=== PATIENT | male | born 1965 | race Caucasian/White ===

== ENCOUNTER 2020-04-27 19:31 | Emergency (ER) | payer OTHER ==
[~2020-04-27] VITALS: Ht 165.1 cm; Wt 65.3 kg
[2020-04-27 21:03] LABS: BASOPHILS 0.9 % (0.0-2.0); EOSINOPHILS 2.4 % (0.0-3.0); HEMATOCRIT 32.6 % (42.0-52.0); HEMOGLOBIN 11.4 gm/dL (14.0-18.0); LYMPHOCYTES 37.9 % (24.0-44.0); MCH 29.5 pg (26.0-34.0); MCHC 34.9 g/dL (28.0-37.0); MCV 84.3 fL (80.0-100.0); MONOCYTES 10.2 % (1.0-8.0); PLATELET COUNT 293 thou/uL (150-400); POLYS 48.6 % (36.0-66.0); RBC 3.86 mil/uL (4.50-6.00); RDW 15.7 % (10.5-14.5); WBC 6.2 thou/uL (4.0-11.0)
[2020-04-27 21:11] LABS: ANION GAP 8 mmol/L (7-16); BUN 21 mg/dL (7-18); CALCIUM 8.3 mg/dL (8.5-10.1); CHLORIDE 106 mmol/L (98-107); CO2 26 mmol/L (21-32); CREATININE 1.1 mg/dL (0.7-1.3); GLUCOSE 98 mg/dL (74-106); POTASSIUM 4.1 mmol/L (3.5-5.1); SODIUM 140 mmol/L (136-145)
[2020-04-27 21:17] LABS: ALBUMIN 3.2 g/dL (3.4-5.0); DIRECT BILIRUBIN < 0.1 mg/dL (<0.1-0.2); LIPASE 245 U/L (73-393); SGOT 33 U/L (15-37); SGPT 34 U/L (30-65); TOTAL BILIRUBIN 0.2 mg/dL (0.2-1.0); TOTAL PROTEIN 6.2 g/dL (6.4-8.2)
[2020-04-28 00:16] LABS: URINE BILIRUBIN NEGATIVE (Negative); URINE BLOOD NEGATIVE (Negative); URINE CLARITY CLEAR; URINE COLOR YELLOW; URINE GLUCOSE-RANDOM* NEGATIVE (Negative); URINE KETONES NEGATIVE (Negative); URINE LEUKOCYTES-REFLEX NEGATIVE (Negative); URINE NITRITE-REFLEX NEGATIVE (Negative); URINE PROTEIN (DIPSTICK) NEGATIVE (Negative); URINE UROBILINOGEN 0.2 E.U./dl (0.2-1.0)
[2020-04-28] MEDS ORDERED: KEFLEX500 M1 PO (00:24)
[2020-04-28 00:27] LABS: BARBITURATES Negative (Negative); BENZODIAZEPINES Negative (Negative); COCAINE Negative (Negative); METHADONE Negative (Negative); OPIATES Negative (Negative); PCP Negative (Negative)
[2020-04-28 00:28] LABS: AMP/METHAMP Negative (Negative)
[2020-04-28 00:41] VITALS: BP 105/74
--- NOTE | 2020-04-28 07:54 | EKG ---
[facility] [place] [address] ELECTROCARDIOGRAM REPORT Name: LAKHWINDER HEALY Room #: [facility]#: [id number] Admission: 04/27/20 Attend Phys: Discharge: 04/28/20 Date of : 69 Report #: [id number] THIS REPORT FOR: cc: DOMINICK - No family physician/PCP DOMINICK - No family physician/PCP Teo Sterling MD [facility] THIS REPORT FOR: //name// [facility] ED Test Date: 2020-04-27 Test Time: 20:39:41 Pat Name: LAKHWINDER HEALY Department: Room: Gender: [employer]: [facility] : 1965 Requested By: Murphy Quevedo Order Number: [id number] MD: Teo Sterling Measurements Intervals [place] Rate: 95 P: 67 GA: 130 QRS: 83 QRSD: 85 T: -9 QT: 357 QTc: 449 Interpretive Statements Sinus rhythm Nonspecific ST segment abnormality No previous ECG available for comparison Electronically Signed On 04-28-2020 7:53:45 CDT by Teo Sterling [email or web address] <ELECTRONICALLY SIGNED> By: Teo Sterling MD, [facility] 04/28/20 0753 D: [id number] Teo Sterling MD, FACC /EPI
== END 2020-04-28 00:55 | disposition home or self-care (01) ==
LOC: ER 19:31
PROVIDERS: Emergency Medicine
DX: S31.119D Laceration without foreign body of abdominal wall, unspecified quadrant without penetration into peritoneal cavity, subsequent encounter (principal); R07.89 Other chest pain; M79.605 Pain in left leg; R06.02 Shortness of breath; J02.9 Acute pharyngitis, unspecified; R05 Cough; Z91.048 Other nonmedicinal substance allergy status; W26.0XXD Contact with knife, subsequent encounter